=== PATIENT | female | born 1955 | race Two or more races ===

== ENCOUNTER 2025-01-18 18:42 | Emergency (ER) | payer MEDICARE, SELFPAY ==
[2025-01-18 19:42] VITALS: BP 127/84; PULSE 82; RESP 20; TEMP 37.6; O2SAT 96; BMI 29.8
--- NOTE | 2025-01-18 20:04 | XR_ITS ---
Examination: PA lateral chest 2 views Technique: Upright PA lateral chest 2 views Exam date and time: January 18, 20252028 hrs. Comparison the 2022 Indications: Back pain body aches today Findings: Early pneumonia in the lingular segment left upper lobe, best depicted on the lateral view Right lung clear Normal heart size Impression: Early pneumonia lingular segment left upper lobe
--- NOTE | 2025-01-18 20:04 | PD.EDRME ---
Rapid Medical Screening Exam [facility] Arrival date/time: 01/18/25 18:42 69F with history of HTN and DM presents to ED with several days of back pain, body aches, and DORSEY. There is also a mild cough. Chief Complaint: Back Pain/Injury Vital signs: Vital Signs Temperature 99.7 F 01/18/25 19:42 Pulse Rate 82 01/18/25 19:42 Respiratory Rate 20 01/18/25 19:42 Blood Pressure 127/84 01/18/25 19:42 Pulse Oximetry (%) 96 01/18/25 19:42 Oxygen Delivery Method Room Air 01/18/25 19:42
[2025-01-18 20:33] LABS: Collection Type, Urine Clean Catch
[2025-01-18 20:39] LABS: Basophils % (Auto) 1 % (0-2.5); Eosinophils % (Auto) 1 % (0-10); Hematocrit 40.1 % (36.0-46.0); Hemoglobin 14.3 g/dL (12.0-16.0); Immature Granulocytes % (Auto) 0 % (0-0); Immature Granulocytes Auto 0.01 Thou/mm3 (0.00-0.00); Lymphocytes # (Auto) 0.9 Thou/mm3 (1.0-4.8); Lymphocytes % (Auto) 25 % (10-50); Mean Corpuscular HGB Conc 35.7 g/dl (31.0-37.0); Mean Corpuscular Hemoglobin 32.4 pg (25.0-35.0); Mean Corpuscular Volume 91 fL (80-100); Monocytes # (Auto) 0.4 Thou/mm3 (0.0-0.8); Monocytes % (Auto) 11 % (0-12); Neutrophils # (Auto) 2.3 Thou/mm3 (1.8-7.7); Neutrophils % (Auto) 63 % (37-80); Nucleated Red Blood Cell % 0 /100 WBC (0); Platelet Count 233 Thou/mm3 (140-440); RDW Standard Deviation 40.7 fL (36.4-46.3); Red Blood Count 4.41 Miln/mm3 (4.00-5.20); White Blood Count 3.7 Thou/mm3 (3.6-11.0)
[2025-01-18] MEDS: NAPROXEN 250 MG TABLET 500 MG PO (20:40)
[2025-01-18 20:47] LABS: Bilirubin,Urine Negative (Negative); Blood,Urine Negative (Negative); Clarity,Urine Clear (Clear/Hazy); Color,Urine Colorless (Lt Yel-Yel); Culture Indicated,Urine Not Indicated; Glucose, Urine 4+ (Negative); Ketones,Urine Negative (Negative); Leukocyte Esterase,Urine Negative (Negative); Nitrite,Urine Negative (Negative); Protein,Urine Negative (Neg - Trace); RBC,Urine 2 /hpf (0-3); Specific Gravity,Urine 1.035 (1.001-1.035); Squamous Epithelial Cell,Urine < 1 /hpf (0-5); Urobilinogen,Urine Negative mg/dL (0.0-1.0); WBC,Urine 2 /hpf (0-5)
[2025-01-18 21:04] LABS: Alanine Aminotransferase 30 U/L (10-49); Albumin, Serum 4.7 gm/dL (3.4-4.8); Albumin/Globulin Ratio 1.3 (1.2-2.2); Alkaline Phosphatase 82 U/L (46-116); Anion Gap 10 (7-16); Aspartate Amino Transferase 32 U/L (0-34); BUN/Creatinine Ratio 14 Ratio (12-20); Bilirubin,Total 0.8 mg/dL (0.3-1.2); Blood Urea Nitrogen 13 mg/dL (9-23); Calcium 9.6 mg/dL (8.3-10.6); Calcium (Corrected) 9.6 mg/dL (8.5-10.1); Carbon Dioxide 25.3 mMol/L (20.0-31.0); Chloride 100 mMol/L (98-107); Creatinine (Component) 0.9 mg/dL (0.6-1.3); Estimated Creatinine Clearance 57.1 mL/min (>60); Globulin 3.6 gm/dL (2.3-3.5); Glucose 292 mg/dL (74-106); Osmolality,Calculated 281 (275-295); Potassium 3.8 mMol/L (3.4-5.1); Procalcitonin 0.13 ng/ml (0.0-0.49); Sodium 135 mMol/L (136-145); Total Protein 8.3 gm/dL (5.7-8.2); eGFR > 60 See Note
--- NOTE | 2025-01-18 21:57 | PD.EDFEVER ---
ED Fever RME/HPI General Chief Complaint: Back Pain/Injury Stated Complaint: BACK & BONES HURT; FEVER; NO MEDS TAKEN TODAY Time Seen by Provider: 01/18/25 21:52 Arrival date/time: 01/18/25 18:42 RME / HPI RME / HPI Narrative: 69-year-old female patient with history of diabetes mellitus hypertension, came in for evaluation regarding left upper back pain, cough, body aches, headache severity moderate. Patient denies any vomiting denies any shortness of breath denies any other complaints no medications taken prior to ER visit. Related Data Previous Rx's ?Medication ?Instructions ?Recorded amoxicillin 875 mg-potassium 1 tab PO BID #14 tabs 01/18/25 clavulanate 125 mg tablet doxycycline hyclate 100 mg tablet 100 mg PO BID #14 tabs 01/18/25 Allergies Allergy/AdvReac Type Severity Reaction Status Date / Time No Known Allergies Allergy Verified 01/18/25 18:46 Review of Systems Review of Systems Narrative Review of Systems: Review of system reviewed and within normal limits except mentioned in HPI Physical Exam Narrative Physical exam: VITAL SIGNS: Reviewed. GENERAL APPEARANCE: Alert and interactive, follows commands, no acute distress, HEAD AND FACE: Non-traumatic. ENT: PERRL, pink conjunctivitis, eyelid no trauma, Mucous membrane moist. NECK: Supple, nontender, no nuchal rigidity. CHEST: No tenderness, no crepitus, no paradoxical movement, no retractions. LUNGS: Clear, well ventilated, symmetric, no rales, no wheezing, no ronchi, no stridor, good breath sounds bilaterally. HEART: Regular rate, regular rhythm, no murmur, no gallops. ABDOMEN: Soft, positive bowel sounds, nondistended, no guarding, nontender, no rebound, no masses, RECTAL: Deferred. GENITAL: Deferred. NEUROLOGICAL: Gross motor function intact sensory function intact, Appropriate for age. MUSCULOSKELETAL: low back nontender, full range of motion. EXTREMITIES: Nontender, full range of motion. SKIN: Color pink, dry, no rash, no lacerations, no abrasions, no contusions. LYMPHATICS: Deferred. Course Quality Measures none Orders Category Date Time Status Bedside COVID-19 Antigen Test NOW Care 01/18/25 20:04 Active Bedside Influenza A&B Antigen Test NOW Care 01/18/25 18:46 Completed XR chest 2V Stat Exams 01/18/25 20:04 Completed CBC Stat Lab 01/18/25 20:25 Completed Comprehensive Metabolic Panel Stat Lab 01/18/25 20:25 Completed Lactate (Lactic Acid) Stat Lab 01/18/25 20:25 Completed Procalcitonin Stat Lab 01/18/25 20:25 Completed Urinalysis, C/S if Indicated Stat Lab 01/18/25 20:20 Completed Amoxicillin/Pot Clav 875 [Augmentin 875] Med 01/18/25 21:53 Discontinued 1 tab PO X1 ONE Naproxen [Naprosyn] Med 01/18/25 20:04 Discontinued 500 mg PO X1 ONE Vital Signs Vital signs: Vital Signs Temperature 99.7 F 01/18/25 19:42 Pulse Rate 82 01/18/25 19:42 Respiratory Rate 20 01/18/25 19:42 Blood Pressure 127/84 01/18/25 19:42 Pulse Oximetry (%) 96 01/18/25 19:42 Oxygen Delivery Method Room Air 01/18/25 19:42 Fever MDM Narrative MDM Narrative:: 69-year-old female patient with history of diabetes mellitus hypertension, came in for evaluation regarding left upper back pain, cough, body aches, headache severity moderate. Patient denies any vomiting denies any shortness of breath denies any other complaints no medications taken prior to ER visit. Patient's workup all came back unremarkable no leukocytosis except for a blood sugar 292, patient is diabetic. Urinalysis no UTI. Chest x-ray showed Early pneumonia lingular segment left upper lobe Patient received Augmentin in the emergency room. Patient was noted to be satting 96% on room air Patient data External records reviewed:: None Clinical information provided by:: patient Social determinants that could affect healthcare access:: none Patient has the following chronic illnesses:: Hypertension diabetes mellitus How is presenting disease/condition affected by chronic disease/condition?: exacerbated by Evaluation data The following diagnostics were reviewed and interpreted by me:: lab results and radiology exam(s) Lab and/or radiology exams considered but not ordered:: None Interpretation Summary: See results in MDM Medications / Prescriptions Medications or Prescriptions considered but not ordered:: None Medication administrations:: Medication Administration History Discontinued Medications Amoxicillin/Clavulanate Potassium (Amoxicillin/Pot Clav 875 Tablet) 1 tab PO X1 ONE Stop: 01/18/25 21:54 Naproxen (Naproxen 250 Mg Tablet) 500 mg PO X1 ONE Stop: 01/18/25 20:05 Last Admin: 01/18/25 20:40 Dose: 500 mg Documented By: Naproxen, Augmentin Consultations Consultation(s) initiated? (list below): No Diagnosis Fever Differential Diagnosis: community acquired pneumonia, viral infection and influenza Most likely diagnosis given after review of the tests above:: Community-acquired pneumonia Admission Indicated Admission indicated?: not indicated Explain why admission is indicated or not indicated:: Stable Admission Request Was there a request for admission?: No Disposition Plan Disposition Plan: Discharge Discharge Attestation Discharge Attestation: The patient and all family members were given an opportunity to ask questions and understood the discharge instructions. Discharge instructions specifically effects, indications for sooner follow up or return to the emergency department, and the expected course of current diagnosis. Patient condition: Stable Discharge Plan Plan Patient Disposition: HOME (Self Care) Disposition Comment: Stable Prescriptions/Referrals Prescriptions/Med Rec: New doxycycline hyclate 100 mg tablet 100 mg PO BID Qty: 14 0RF amoxicillin-pot clavulanate 875-125 mg tablet 1 tab PO BID Qty: 14 0RF Referrals: No Primary/Family,Physician [Primary Care Provider] - In 1 week Problem List Clinical Impression: Pneumonia Patient/Caregiver Discharge Instructions Discharge Activity: activity as tolerated Education Materials: ED Pneumonia (Adult) Additional Instructions: Thank you for the opportunity for serving you today. You are stable for discharged . You are advised to: Follow-up with your PCP in 1 to 2 days Return to ED for worsening of symptoms Increase oral fluids Take medication as prescribed Print Language: Nigerien Stand Alone Forms: Tressa Award Info., Patient Portal Info Letter PA/KAMRYN Supervising Physician ROBERT/KAMRYN Supervising Physician: MD Jacki
[2025-01-18] MEDS: AMOXICILLIN/POT CLAV 875 TABLET 1 TAB PO (22:43)
== END 2025-01-18 23:14 | disposition home or self-care (01) ==
PROVIDERS: Physician Assistant; Emergency Provider Emergency Medicine
DX: J18.9 Pneumonia, unspecified organism (principal); E11.9 Type 2 diabetes mellitus without complications; I10 Essential (primary) hypertension
CPT/HCPCS: 36415; 71046; 80053; 81001; 83605; 84145; 85025; 87400; 87811; 99283; A9270